=== PATIENT | male | born 1950 | race Caucasian/White ===

== ENCOUNTER 2021-12-06 08:47 | Inpatient (IN) | payer MEDICARE, OTHER ==
[~2021-12-06] VITALS: Ht 182.9 cm; Wt 72.6 kg
--- NOTE | 2021-12-06 09:00 | NUR ---
[id number] HOME C/O ABDOMINAL PAIN,CONSTIPATION, UNABLE TO URINATE X 2 DAYS. PT IS HARD OF HEARING.
--- NOTE | 2021-12-06 09:14 | NUR ---
STARTED FAYE CATH, PALE YELLOW FLUID OBSERVERD IN TUBING AND RESERVOIR.
[2021-12-06] MEDS ORDERED: MINERAL OIL 133 ML (PYXIS) 1 EA ENEMA RC ONE (09:30)
[2021-12-06] MEDS ORDERED: IV NS 0.9% 1,000 ML BAG IV ONE (09:30)
--- NOTE | 2021-12-06 09:30 | NUR ---
FC RESERVOIR DRAINED, 1500 ML URINE MEASURED. COLOR HAS TURNED PINK.
[2021-12-06 09:35] LABS: BASOPHILS % (AUTO) 0.4 % (0.0-2.0); HEMATOCRIT 36 % (39-51); HEMOGLOBIN 11.9 g/dL (13.5-17.5); LYMPHOCYTES % (AUTO) 7.8 % (20.0-44.0); MEAN CORPUSCULAR HGB CONC 33 g/dl (31.0-36.0); MEAN CORPUSCULAR VOLUME 94 fL (80-96); MONOCYTES # (AUTO) 1.3 K/uL (0.1-1.30); MONOCYTES % (AUTO) 9.7 % (2.0-12.0); NEUTROPHILS # (AUTO) 10.7 K/uL (1.8-8.9); NEUTROPHILS % (AUTO) 82.1 % (43.0-81.0); PLATELET COUNT (AUTO) 160 K/uL (150-450); RED BLOOD CELL COUNT(AUTO) 3.84 MIL/uL (4.5-6.0); WHITE BLOOD COUNT (AUTO) 13.1 K/uL (4.3-11.0)
[2021-12-06] MEDS ORDERED: NA PHOS,M-B/NA PHOS,DI-BA 1 EA ENEMA RC ONE (09:40)
[2021-12-06 09:52] LABS: ALANINE AMINOTRANSFERASE 41 U/L (12-78); ALBUMIN 3.8 g/dL (3.4-5.0); ALKALINE PHOSPHATASE 54 U/L (46-116); ASPARTATE AMINOTRANSFERASE 39 U/L (15-37); BILIRUBIN,DIRECT 0.3 mg/dL (0.0-0.2); BILIRUBIN,TOTAL 2.2 mg/dL (0.2-1.0); CALCIUM, SERUM 9.5 mg/dL (8.5-10.1); CARBON DIOXIDE 24 mmol/L (21-32); CHLORIDE 109 mmol/L (98-107); CREATININE 3.6 mg/dL (0.6-1.3); GLUCOSE 164 mg/dL (74-106); LIPASE 30 U/L (73-393); POTASSIUM 4.3 mmol/L (3.5-5.1); SODIUM SERUM 146 mmol/L (136-145); TOTAL PROTEIN, SERUM 7.5 g/dL (6.4-8.2); UREA NITROGEN, BLOOD 63 mg/dL (7-18)
--- NOTE | 2021-12-06 09:52 | NUR ---
URINE SAMPLE COLLECTED AND SENT TO LAB
--- NOTE | 2021-12-06 10:54 | NUR ---
MOVE SHEET SUBMITTED.
[2021-12-06] MEDS ORDERED: HYDR12.55 PO (11:02)
[2021-12-06] MEDS ORDERED: AMLO2.5T4 PO (11:02)
[2021-12-06] MEDS ORDERED: LISI20TA30 PO (11:02)
[2021-12-06] MEDS ORDERED: EZET10TA32 PO (11:02)
[2021-12-06] MEDS ORDERED: ASPI-1420 PO (11:02)
[2021-12-06] MEDS ORDERED: ATOR20TA PO (11:02)
[2021-12-06] MEDS ORDERED: ACETAMINOPHEN 325 MG TABLET PO PRN (11:30)
[2021-12-06] MEDS ORDERED: ONDANSETRON HCL/PF 4 MG/2 ML VIAL IVP PRN (11:30)
[2021-12-06] MEDS ORDERED: MAG HYDROX/AL HYDROX/SIMETH 30 ML UDC PO PRN (11:30)
[2021-12-06] MEDS ORDERED: TAMSULOSIN 0.4 MG CAP.SR.24H PO ONE (11:30)
[2021-12-06 11:37] LABS: BILIRUBIN,URINE NEGATIVE (NEGATIVE); COLOR,URINE RED (YELLOW); LEUKOCYTE ESTERASE ,URINE NEGATIVE (NEGATIVE); NITRITE, URINE NEGATIVE (NEGATIVE); PROTEIN,URINE 100 mg/dl (NEGATIVE); UGLUCOSE NEGATIVE (NEGATIVE); UROBILINOGEN,URINE 0.2 EU/dL (0.2)
[2021-12-06] MEDS ORDERED: CLONIDINE HCL 0.1 MG TABLET PO PRN (12:00)
[2021-12-06 12:03] LABS: BACTERIA,URINE Rare /HPF (None Seen); RBC,URINE TOO NUMEROUS TO COUN /HPF (0-2); SQUAMOUS EPITHELIAL CELL,UR Few /HPF (None Seen); WBC,URINE 0-2 /HPF (0-3)
--- NOTE | 2021-12-06 12:56 | NUR ---
RAPID COVID SWAB DONE AND SENT TO LAB
--- NOTE | 2021-12-06 13:37 | NUR ---
2.2L OF RED TINGED URINE DRAINED
--- NOTE | 2021-12-06 14:33 | NUR ---
room 309-1
--- NOTE | 2021-12-06 14:53 | NUR ---
BED 116-2
--- NOTE | 2021-12-06 15:15 | NUR ---
REPORT GIVEN TO LAM LUCAS OF [facility] UN[facility]
--- NOTE | 2021-12-06 15:30 | NUR ---
RN OPENING NOTES RECIEVED PATIENT FROM EMERGENCY DEPARTMENT. PATIENT ALERT AND ORIENTED TIMES 4. NO COMPLAINTS OF PAIN AT THIS TIME. IV ACCESS ON LEFT ANTECUBITAL 18 GAUGE, STARTED ON IV NORMAL SALINE AT 75 MLS/HR. AFYE CATHETER ATTACHED DRAINING OUTPUT. SKIN INTACT. RIGHT ELBOW GROW NOTED, DOCUMENTED IN PHYSICAL CHART. SAFETY MEASURES IMPLEMENTED, BED IN LOWEST LOCKED POSITION, SIDE RAILS UP TIMES TWO, CALL LIGHT WITHIN REACH. WILL CONTINUE PLAN OF CARE AND ANTICIPATE NEEDS.
[2021-12-06] MEDS: IV NS 0.9% 1,000 ML IV PRN (15:36)
[2021-12-06 16:00] VITALS: BP 153/78
[2021-12-06] MEDS: CEFTRIAXONE 1 G in IV D5W 50 ML IV SCH (16:56)
[2021-12-06] MEDS ORDERED: Z GUARD REMEDY 4 OZ OINT TP PRN (17:00)
--- NOTE | 2021-12-06 18:46 | NUR ---
RN CLOSING NOTES PATIENT ALERT AND ORIENTED TIMES 4. NO COMPLAINTS OF PAIN AT THIS TIME. IV ACCESS ON LEFT ANTECUBITAL 18 GAUGE, RUNNING NORMAL SALINE AT 75 MLS/HR. FAYE CATHETER ATTACHED DRAINING RED OUTPUT. SKIN INTACT. RIGHT ELBOW GROW NOTED, DOCUMENTED IN PHYSICAL CHART. SAFETY MEASURES IMPLEMENTED, BED IN LOWEST LOCKED POSITION, SIDE RAILS UP TIMES TWO, CALL LIGHT WITHIN REACH. WILL ENDORSE TO NIGHTSHIFT NURSE MICHAEL FOR CONTINUATION OF CARE.
[2021-12-06 20:00] VITALS: BP 150/81
[2021-12-06] MEDS ORDERED: MAGNESIUM HYDROXIDE 30 ML UDC PO PRN (22:00)
--- NOTE | 2021-12-06 23:48 | NUR ---
MS RN OPENING NOTE PT RECEIVED IN BED, AWAKE, A&O X4, CALM, COOPERATIVE. ON RA WITH O2SAT OF 97%; NO S/S OF RESP DISTRESS, NO SOB OR COUGH, NON-LABORED AND EQUAL BREATHING. VSS, WILL CONTINUE TO MONITOR NEEDED. IV ACCESS ON LAC 18G, INTACT AND PATENT, FLUSHES EASILY WITH NO RESISTANCE; NS INFUSING AT 75 ML/HR. BED IN LOWEST POSITION, CALL LIGHT WITHIN REACH, SIDE RAILS UP X2. WILL CONTINUE TO MONITOR THROUGHOUT THE NIGHT.
[2021-12-07 04:00] VITALS: BP 172/87
[2021-12-07] MEDS: IV NS 0.9% 1,000 ML IV PRN ×2 (04:31→20:21)
--- NOTE | 2021-12-07 07:00 | NUR ---
MS RN CLOSING NOTE PT REMAINS IN BED, AWAKE, A&O X4, CALM, COOPERATIVE. ON RA WITH O2SAT RANGING FROM 97%-99%; NO S/S OF RESP DISTRESS, NO SOB OR COUGH, NON-LABORED AND EQUAL BREATHING. VSS DURING THE NIGHT WITH NO SIGNIFICANT CHANGES. LAC 18G INTACT AND PATENT, FLUSHES EASILY WITH NO RESISTANCE, NS INFUSING AT 75 ML/HR. BED IN LOWEST POSITION, CALL LIGHT WITHIN REACH, SIDE RAILS UP X2. WILL ENDORSE TO DAYSHIFT NURSE TO CONTINUE CARE. Addendum: 12/07/21 at 0739 by PRINCESS GAVIN LUCAS FAYE INTACT AND PATENT, NO SIGNS OF LEAKING. URINE NOTED TO BE IMPROVING IN COLOR AND IS NOW PINKISH YELLOW COMPARED TO THE LIGHT REDDISH COLOR FROM BEGINNING OF SHIFT.
--- NOTE | 2021-12-07 07:10 | NUR ---
ms rn opening note patient is alert and oriented x4. patient is able to make needs known. patient is hard of hearing. patient is on room saturating at 97%. patient is med surg status. patient has Leggett catheter. red/yellowish/orange color draining to gravity. patient has left ac 18 gauge. iv intact and patent. patient has normal saline running at 75ml/hr. all safety measures in place. call light within reach.bed locked doc lowest position. call light within Reach.bed alarm on.
[2021-12-07 07:30] LABS: CALCIUM, SERUM 9.3 mg/dL (8.5-10.1); CARBON DIOXIDE 24 mmol/L (21-32); CHLORIDE 110 mmol/L (98-107); CREATININE 1.9 mg/dL (0.6-1.3); GLUCOSE 122 mg/dL (74-106); PHOSPHORUS 4.6 mg/dL (2.5-4.9); POTASSIUM 3.9 mmol/L (3.5-5.1); SODIUM SERUM 146 mmol/L (136-145); UREA NITROGEN, BLOOD 43 mg/dL (7-18)
[2021-12-07 07:35] LABS: BASOPHILS % (AUTO) 0.2 % (0.0-2.0); EOSINOPHILS % (AUTO) 0.3 % (0.0-6.0); HEMATOCRIT 39 % (39-51); HEMOGLOBIN 12.7 g/dL (13.5-17.5); LYMPHOCYTES % (AUTO) 15.5 % (20.0-44.0); MEAN CORPUSCULAR HGB CONC 33 g/dl (31.0-36.0); MEAN CORPUSCULAR VOLUME 94 fL (80-96); MONOCYTES # (AUTO) 1.3 K/uL (0.1-1.30); MONOCYTES % (AUTO) 10.1 % (2.0-12.0); NEUTROPHILS # (AUTO) 9.3 K/uL (1.8-8.9); NEUTROPHILS % (AUTO) 73.9 % (43.0-81.0); PLATELET COUNT (AUTO) 160 K/uL (150-450); RED BLOOD CELL COUNT(AUTO) 4.09 MIL/uL (4.5-6.0); WHITE BLOOD COUNT (AUTO) 12.6 K/uL (4.3-11.0)
[2021-12-07 08:00] VITALS: BP 159/77
[2021-12-07] MEDS: ASPIRIN EC 81 MG TABLET.DR PO SCH (08:09)
[2021-12-07] MEDS: ATORVASTATIN 10 MG TABLET PO SCH (08:09)
[2021-12-07] MEDS: EZETIMIBE 10 MG TABLET PO SCH (08:10)
[2021-12-07] MEDS: AMLODIPINE BESYLATE 5 MG TABLET PO SCH (08:10)
--- NOTE | 2021-12-07 14:00 | NUR ---
notified dr. bradley that patient is complaining of abdominal pain and feels mass is protuding and leg cramp. md ordered additional tests.
--- NOTE | 2021-12-07 15:00 | NUR ---
patient sister at bedside. updated about patient conditions. and relayed information to dr. bradley
[2021-12-07] MEDS: CEFTRIAXONE 1 G in IV D5W 50 ML IV SCH (15:19)
[2021-12-07 16:00] VITALS: BP 144/71
--- NOTE | 2021-12-07 19:20 | NUR ---
MS OPENING NOTE RECEIVED PT IN BED AOX4, ABLE TO MAKE NEEDS KNOWN. PT IS HARD OF HEARING. BREATHING ON ROOM AIR WITH 02 SAT OF 97%. PT HAS FAYE CATHETER IN PLACE DRAINING ORANGE COLOR URINE VIA GRAVITY. IV ACCESS ON LAC #18 RUNNING NS AT 75MLS/HR. ALL SAFETY MEASURE IN PLACE, BED LOCKED AND IN LOWEST POSITION, CALL LIGHT WITHIN REACH. WILL CONTINUE TO MONITOR THROUGHOUT SHIFT.
[2021-12-07 20:00] VITALS: BP 149/82
--- NOTE | 2021-12-07 20:41 | NUR ---
MS closing nOTE received patient in bed. alert and oriented x4. all needs met. patient is hard of hearing. patient is on room air tolerating 02 at 97%. no pain or discomofrt noted at this time. patient has dumont cathehter in place. orange color draining to gravity.iv access on left hand running fluids. iv patent and intact. all safety measures in place. call light within reach. bed locked at lowest position.side rails up x2. bedside table next to patient
[2021-12-08 04:00] VITALS: BP 138/82
[2021-12-08 07:17] LABS: BASOPHILS % (AUTO) 0.4 % (0.0-2.0); EOSINOPHILS % (AUTO) 2.3 % (0.0-6.0); HEMATOCRIT 37 % (39-51); HEMOGLOBIN 12.4 g/dL (13.5-17.5); LYMPHOCYTES # (AUTO) 2.2 K/uL (0.8-4.8); LYMPHOCYTES % (AUTO) 19.8 % (20.0-44.0); MEAN CORPUSCULAR HGB CONC 33 g/dl (31.0-36.0); MEAN CORPUSCULAR VOLUME 95 fL (80-96); MONOCYTES # (AUTO) 1.1 K/uL (0.1-1.30); MONOCYTES % (AUTO) 9.6 % (2.0-12.0); NEUTROPHILS # (AUTO) 7.5 K/uL (1.8-8.9); NEUTROPHILS % (AUTO) 67.9 % (43.0-81.0); PLATELET COUNT (AUTO) 153 K/uL (150-450); RED BLOOD CELL COUNT(AUTO) 3.96 MIL/uL (4.5-6.0)
--- NOTE | 2021-12-08 07:30 | NUR ---
ms rn opening note patient is alert and oriented x4. patient is able to make needs known. patient is hard of hearing. patient is on room saturating at 98%. patient is med surg status. patient has Leggett catheter. red/yellowish/orange color draining to gravity. patient has left ac 18 gauge. iv intact and patent. patient has normal saline running at 75ml/hr. all safety measures in place. call light within reach.bed locked doc lowest position. call light within Reach.bed alarm on.
[2021-12-08 07:52] LABS: CALCIUM, SERUM 8.8 mg/dL (8.5-10.1); CARBON DIOXIDE 26 mmol/L (21-32); CHLORIDE 109 mmol/L (98-107); CREATININE 1.4 mg/dL (0.6-1.3); GLUCOSE 126 mg/dL (74-106); POTASSIUM 3.9 mmol/L (3.5-5.1); SODIUM SERUM 143 mmol/L (136-145); UREA NITROGEN, BLOOD 33 mg/dL (7-18)
--- NOTE | 2021-12-08 07:53 | NUR ---
RN/ CLOSING NOTE ALL CARE ENDORSED TO DAY SHIFT RN. PATIENT IS STABLE AND SHOWS NO SIGNS OF DISTRESS. ALL QUESTIONS ANSWERED.
[2021-12-08 08:00] VITALS: BP 161/98
[2021-12-08] MEDS: ASPIRIN EC 81 MG TABLET.DR PO SCH (08:11)
[2021-12-08] MEDS: ATORVASTATIN 10 MG TABLET PO SCH (08:12)
[2021-12-08] MEDS: EZETIMIBE 10 MG TABLET PO SCH (08:22)
[2021-12-08] MEDS: AMLODIPINE BESYLATE 5 MG TABLET PO SCH (08:22)
[2021-12-08] MEDS ORDERED: TAMS-12 PO (08:55)
--- NOTE | 2021-12-08 09:40 | NUR ---
discontinued dumont catheters per md order. monitor urine output for 6 hours. if no urine output reinsert Dumont catheter
[2021-12-08] MEDS: IV NS 0.9% 1,000 ML IV PRN (15:15)
[2021-12-08] MEDS: CEFTRIAXONE 1 G in IV D5W 50 ML IV SCH (15:17)
[2021-12-08 16:00] VITALS: BP 149/97
--- NOTE | 2021-12-08 16:06 | NUR ---
bladder scanner completed. more than 300 urine ouput. notified mirna lane. said to reinsert dumont cathether. pending discharge but need to make arrangements with home health and leather case finisher
--- NOTE | 2021-12-08 16:20 | NUR ---
reinserted dumont cathether. yellow/red color draining to gravity.
--- NOTE | 2021-12-08 19:10 | NUR ---
RN NOTE PATIENT IN BED, AO X 4, BREATHING EVEN AND UNLABORED, SATURATION AT 97% ON ROOM AIR, HR IS 65. IV LINE AT LAC 18G PATENT AND FLUSHING WELL, NS INFUSING AT 75 ML/HR. FAYE CATHETER DRAINING TO A CLEAR, REDDISH/YELLOWISH OUTPUT. PATIENT INDEPENDENT WITH ADL'S. SAFETY MEASURES IMPLEMENTED, BED IS LOCKED AND AT LOWEST POSITION, HOB ELEVATED, SIDE RAILS UP X 2, CALL LIGHT WITHIN REACH OF PATIENT. WILL CONTINUE TO MONITOR AND REASSESS.
[2021-12-08 20:00] VITALS: BP 125/77
--- NOTE | 2021-12-08 20:21 | NUR ---
ms myrick opening note patient is alert and oriented x4.patient is hard of hearing. patient is able to make needs known. no signs of pain or discomfort. patient is on room air saturating at 97%. patient has dumont cathether red color/orange color draining to gravity. patient has iv site on the right arm. iv intact and patent. patient has normal saline running at 75 ml/hr. all needs met. all safety measures in place. call light within reach. bed locked at lowest position. side rails up x2. Addendum: 12/08/21 at 2023 by CJ ADAM RN ms myrick closing note
[2021-12-09 05:00] VITALS: BP 160/79
[2021-12-09 06:00] VITALS: BP 158/90
--- NOTE | 2021-12-09 07:10 | NUR ---
rn opening note patient is alert and oriented x4.patient is hard of hearing. patient is able to make needs known. no signs of pain or discomfort. patient is on room air saturating at 97%. patient has dumont cathether red color/orange color draining to gravity. patient has iv site on the right arm. iv intact and patent. patient has normal saline running at 75 ml/hr. all needs met. all safety measures in place. call light within reach. bed locked at lowest position. side rails up x2
[2021-12-09] MEDS: ASPIRIN EC 81 MG TABLET.DR PO SCH (08:34)
[2021-12-09] MEDS: EZETIMIBE 10 MG TABLET PO SCH (08:34)
[2021-12-09] MEDS: ATORVASTATIN 10 MG TABLET PO SCH (08:34)
[2021-12-09 08:35] VITALS: BP 152/88
[2021-12-09] MEDS: AMLODIPINE BESYLATE 5 MG TABLET PO SCH (08:35)
--- NOTE | 2021-12-09 10:40 | NUR ---
RN NOTE PT WAS DISCHARGED FOR HOME, PICKED UP BY SISTER ACACIA. LEFT FOR HOME WITH FAYE INTACT AND PATENT DRAINING YELLOW URINE VIA GRAVITY. ALL VS STABLE. PATIENT WAS GIVEN DISCHARGE INSTRUCTIONS, VERBALLY AND WRITTEN FORM. PATIENT BELONGINGS ACCOUNTED FOR.
== END 2021-12-09 11:59 | disposition home health service (06) | DRG 725 ==
LOC: ER 09:55 → MEDSG1 15:20
PROVIDERS: ADMIT Internal Medicine; ATTEND Internal Medicine
DX: N40.1 Benign prostatic hyperplasia with lower urinary tract symptoms (principal); N17.0 Acute kidney failure with tubular necrosis; N13.8 Other obstructive and reflux uropathy; E87.1 Hypo-osmolality and hyponatremia; N13.30 Unspecified hydronephrosis; N13.9 Obstructive and reflux uropathy, unspecified; R33.9 Retention of urine, unspecified; N32.0 Bladder-neck obstruction; E86.0 Dehydration; E86.1 Hypovolemia; I25.10 Atherosclerotic heart disease of native coronary artery without angina pectoris; Z95.5 Presence of coronary angioplasty implant and graft; K59.00 Constipation, unspecified; I12.9 Hypertensive chronic kidney disease with stage 1 through stage 4 chronic kidney disease, or unspecified chronic kidney disease; N18.9 Chronic kidney disease, unspecified; Z20.822 Contact with and (suspected) exposure to COVID-19; K57.30 Diverticulosis of large intestine without perforation or abscess without bleeding
CPT/HCPCS: 36415; 76770-TC; 80048-TC; 80076-TC; 81001; 83690-TC; 83735-TC; 84100-TC; 85025-TC; 85730-TC; 87081-TC; C9803; G0378; J0696; J3490; J7030; J7060

== ENCOUNTER 2021-12-20 23:08 | Emergency (ER) | payer MEDICARE, OTHER ==
[~2021-12-20] VITALS: Ht 180.3 cm; Wt 83.9 kg
[~2021-12-20 23:08] MED LIST: AMLO2.5T4 PO; ASPI-1420 PO; ATOR20TA PO; EZET10TA32 PO; HYDR12.55 PO; LISI20TA30 PO; TAMS-12 PO
--- NOTE | 2021-12-21 | NUR ---
BIBRA 860 FROM HOME STEPPED ON F/C & C/O BLOOD IN F/C. PT AWAKE AND ALERT X4 BREATHING UNLABORED. BROWN URINE NOTED IN URINE BAG AND DRIED BLOOD AT GENITAL. NO ACTIVE BLEED. DENIES ANY PAIN AT THIS TIME .
--- NOTE | 2021-12-21 00:12 | NUR ---
BLADDER MANUALLY IRRIGATED AND NOTED TWO SMALL CLOTS. OTHERWISE DRAINING CLEAR WITHOUT OBSTRUCTION ON GROSS HEMATURIA. MADE AWARE.
--- NOTE | 2021-12-21 01:00 | NUR ---
Note hanna in EDM - 12/21/21 at 0107 by VICTORIA BIBRA 860 FROM HOME STEPPED ON F/C & C/O BLOOD IN F/C. PT AWAKE AND ALERT X4 BREATHING UNLABORED. BROWN URINE NOTED IN URINE BAG AND DRIED BLOOD AT GENITAL. NO ACTIVE BLEED. DENIES ANY PAIN AT THIS TIME .
--- NOTE | 2021-12-21 01:02 | NUR ---
URINE COLLECTED AND SENT TO LAB
--- NOTE | 2021-12-21 01:03 | NUR ---
URINE COLLECTED AND SENT TO LAB
[2021-12-21 01:25] LABS: BILIRUBIN,URINE NEGATIVE (NEGATIVE); COLOR,URINE YELLOW (YELLOW); LEUKOCYTE ESTERASE ,URINE SMALL (NEGATIVE); NITRITE, URINE POSITIVE (NEGATIVE); PH,URINE 5.5 (5.0-8.0); PROTEIN,URINE TRACE mg/dl (NEGATIVE); UGLUCOSE NEGATIVE (NEGATIVE); UROBILINOGEN,URINE 0.2 EU/dL (0.2)
--- NOTE | 2021-12-21 01:59 | NUR ---
Patient discharged to home in stable condition via [facility]. Written and verbal after care instructions given. Patient verbalizes understanding of instruction. F/C leg bag attached. PT ambulatory with a steady gait
[2021-12-21 02:23] VITALS: BP 122/54
[2021-12-21 07:19] LABS: BACTERIA,URINE Few /HPF (None Seen); SQUAMOUS EPITHELIAL CELL,UR Moderate /HPF (None Seen)
== END 2021-12-21 02:00 | disposition home or self-care (01) ==
LOC: ER 23:14
DX: S39.94XA Unspecified injury of external genitals, initial encounter (principal); R31.9 Hematuria, unspecified; I10 Essential (primary) hypertension; I25.2 Old myocardial infarction; E78.00 Pure hypercholesterolemia, unspecified; Z88.0 Allergy status to penicillin; Z60.2 Problems related to living alone; Z79.899 Other long term (current) drug therapy; X58.XXXA Exposure to other specified factors, initial encounter; Y93.89 Activity, other specified; Y92.89 Other specified places as the place of occurrence of the external cause; Y99.8 Other external cause status
CPT/HCPCS: 99284; 51700; 87077; 87086; 87186 ×2; 81001; A4217

== ENCOUNTER 2022-01-27 03:30 | Emergency (ER) | payer MEDICARE, OTHER ==
[~2022-01-27] VITALS: Ht 177.8 cm; Wt 72.6 kg
[2022-01-27 03:37] VITALS: BP 146/76
--- NOTE | 2022-01-27 03:40 | NUR ---
[id number]. PUBIC PAIN, NO URINATION X 2300. FAYE CATH REMOVED BY UROLOGIST. PT IS A/O, RR EVEN, NO SOB NOTED. TO ER BED 11.
--- NOTE | 2022-01-27 03:45 | NUR ---
INSERTED Fr16 F/C, 700 CC URINE OUTPUT CLEAR YELLOW URINE. CHANGE TO LEG BAG
[2022-01-27] MEDS ORDERED: LIDOCAINE 2% JEL UROJET 10 ML MM ONE (03:46)
--- NOTE | 2022-01-27 04:40 | NUR ---
PAGED GILBERTO FOR PT. WAITING FOR NEXT AVAILABLE IN AREA.
--- NOTE | 2022-01-27 05:30 | NUR ---
[employer] still searching for passenger coach driver
--- NOTE | 2022-01-27 06:44 | NUR ---
Patient discharged to home in stable condition. Written and verbal after care instructions given. Patient verbalizes understanding of instruction.
== END 2022-01-27 06:45 | disposition home or self-care (01) ==
LOC: ER 03:40
DX: R33.9 Retention of urine, unspecified (principal); I10 Essential (primary) hypertension; I25.2 Old myocardial infarction; E78.00 Pure hypercholesterolemia, unspecified; Z60.2 Problems related to living alone; Z79.899 Other long term (current) drug therapy
CPT/HCPCS: 99284; 51702; J3490

== ENCOUNTER 2022-03-14 01:07 | Emergency (ER) | payer MEDICARE, OTHER ==
[~2022-03-14] VITALS: Ht 175.3 cm; Wt 75.3 kg
--- NOTE | 2022-03-14 01:17 | NUR ---
[id number] FROM HOME FOR URINARY RETENTION SINCE THE AFTERNOON FAYE IN PLACE. PT A/OX4 TOLERATING R/A WELL WITH NO RESP DISTRESS. SAFETY MEASURES IN PLACE.
--- NOTE | 2022-03-14 01:34 | NUR ---
BLADDER SCAN - 353ML; DR. SAMANTHA LAZCANO AWARE
--- NOTE | 2022-03-14 01:37 | NUR ---
WAREHOUSE FOREMAN AT PT'S BEDSIDE
[2022-03-14 01:56] LABS: CREATININE 1.1 mg/dL (0.6-1.3); POTASSIUM 4.1 mmol/L (3.5-5.1)
[2022-03-14] MEDS ORDERED: LIDOCAINE 2% JEL UROJET 10 ML MM ONE (02:01)
--- NOTE | 2022-03-14 02:16 | NUR ---
INSERTED F/C 16FR WITH 325 ML URINE OUTPUT; COLLECTED AND SENT TO LAB
[2022-03-14 02:46] LABS: BILIRUBIN,URINE NEGATIVE (NEGATIVE); COLOR,URINE YELLOW (YELLOW); LEUKOCYTE ESTERASE ,URINE 1+ (NEGATIVE); NITRITE, URINE NEGATIVE (NEGATIVE); PROTEIN,URINE TRACE mg/dl (NEGATIVE); UGLUCOSE NEGATIVE (NEGATIVE); UROBILINOGEN,URINE 0.2 EU/dL (0.2)
[2022-03-14 02:49] LABS: BACTERIA,URINE Few /HPF (None Seen); RBC,URINE TOO NUMEROUS TO COUN /HPF (0-2); SQUAMOUS EPITHELIAL CELL,UR Rare /HPF (None Seen)
--- NOTE | 2022-03-14 03:26 | NUR ---
Patient discharged to home in stable condition. Written and verbal after care instructions given. Patient verbalizes understanding of instruction. PT ambulatory with a steady gait
[2022-03-14 03:28] VITALS: BP 125/7
== END 2022-03-14 03:28 | disposition home or self-care (01) ==
LOC: ER 01:17
DX: R33.9 Retention of urine, unspecified (principal); I10 Essential (primary) hypertension; E78.00 Pure hypercholesterolemia, unspecified; Z60.2 Problems related to living alone; Z79.899 Other long term (current) drug therapy; Z88.0 Allergy status to penicillin; Z79.82 Long term (current) use of aspirin
CPT/HCPCS: 99284; 51702; 80048; 87086; 81001; 36415; J3490

== ENCOUNTER 2022-05-09 16:07 | Emergency (ER) | payer MEDICARE, OTHER ==
[~2022-05-09] VITALS: Ht 177.8 cm; Wt 77.1 kg
--- NOTE | 2022-05-09 17:15 | NUR ---
NEW FAYE INSERTED WITH LEG BAG, PER PATIENT REQUEST
--- NOTE | 2022-05-09 17:16 | NUR ---
URINE SAMPLE COLLECTED
[2022-05-09 18:13] LABS: BILIRUBIN,URINE NEGATIVE (NEGATIVE); COLOR,URINE YELLOW (YELLOW); LEUKOCYTE ESTERASE ,URINE 2+ (NEGATIVE); NITRITE, URINE POSITIVE (NEGATIVE); PROTEIN,URINE 1+ mg/dl (NEGATIVE); UGLUCOSE NEGATIVE (NEGATIVE); UROBILINOGEN,URINE 0.2 EU/dL (0.2)
[2022-05-09] MEDS ORDERED: CIPR500T5 PO (19:06)
[2022-05-09 19:07] LABS: BACTERIA,URINE 3+ /HPF (None Seen); RBC,URINE 51-80 /HPF (0-2); SQUAMOUS EPITHELIAL CELL,UR 0-2 /HPF (None Seen); WBC,URINE 51-80 /HPF (0-3)
[2022-05-09 19:16] VITALS: BP 133/74
--- NOTE | 2022-05-09 19:17 | NUR ---
Patient discharged to home in stable condition. Written and verbal after care instructions given. Patient verbalizes understanding of instruction.
== END 2022-05-09 19:17 | disposition home or self-care (01) ==
LOC: ER 17:07
DX: T83.091A Other mechanical complication of indwelling urethral catheter, initial encounter (principal); N39.0 Urinary tract infection, site not specified; I10 Essential (primary) hypertension; I25.2 Old myocardial infarction; E78.00 Pure hypercholesterolemia, unspecified; Z60.2 Problems related to living alone; Z79.899 Other long term (current) drug therapy
CPT/HCPCS: 81001; 87086-TC

== ENCOUNTER 2022-06-20 18:40 | Emergency (ER) | payer MEDICARE, OTHER ==
[~2022-06-20] VITALS: Ht 177.8 cm; Wt 78.0 kg
[~2022-06-20 18:40] MED LIST changes: +CIPR500T5 PO
--- NOTE | 2022-06-20 19:00 | NUR ---
Patient AOx4, [place], able to express his concerns. States he is ok other than pain when he urinates. All safety precaution taken, will continue to monitor.
--- NOTE | 2022-06-20 19:21 | NUR ---
New folley inserted, urine collected and sent to lab.
[2022-06-20] MEDS ORDERED: CIPROFLOXACIN HCL 500 MG TABLET PO ONE (19:30)
--- NOTE | 2022-06-20 19:30 | NUR ---
Pt is noted alert, responsive as report is received from the off going nurse , that , pt came in C/O Bloody Dranage from Leggett Cath and a New 16Fr Leggett Cath is been insterted . Pt care continue as he will be monitor closely with clear urine noted drainging with no s/s off dsitress or C/O pain.
[2022-06-20] MEDS ORDERED: CIPR-262 PO (19:32)
--- NOTE | 2022-06-20 19:33 | NUR ---
HAND OFF DEVON LUCAS
--- NOTE | 2022-06-20 19:34 | NUR ---
Handoff report given to Dorothy LUCAS
[2022-06-20] MEDS ORDERED: CIPROFLOXACIN HCL 500 MG TABLET ONE (19:42)
--- NOTE | 2022-06-20 19:50 | NUR ---
Cipro 500mg PO given as ordered. Pt care continue.
[2022-06-20 20:08] LABS: BILIRUBIN,URINE NEGATIVE (NEGATIVE); COLOR,URINE YELLOW (YELLOW); LEUKOCYTE ESTERASE ,URINE TRACE (NEGATIVE); NITRITE, URINE NEGATIVE (NEGATIVE); PROTEIN,URINE NEGATIVE (NEGATIVE); UGLUCOSE NEGATIVE (NEGATIVE); UROBILINOGEN,URINE 0.2 EU/dL (0.2)
--- NOTE | 2022-06-20 20:11 | NUR ---
Pt care continue as he is been discharge to home with Leg Bag and all discharge instructions given and no s/s off distress as urine is noted yellow and clear.
[2022-06-20 20:14] VITALS: BP 140/88
[2022-06-20 21:39] LABS: BACTERIA,URINE RARE /HPF (None Seen); RBC,URINE 51-80 /HPF (0-2); SQUAMOUS EPITHELIAL CELL,UR 0-2 /HPF (None Seen)
== END 2022-06-20 20:15 | disposition home or self-care (01) ==
LOC: ER 18:42
DX: T83.83XA Hemorrhage due to genitourinary prosthetic devices, implants and grafts, initial encounter (principal); I10 Essential (primary) hypertension; E78.00 Pure hypercholesterolemia, unspecified; Z79.899 Other long term (current) drug therapy; Z79.82 Long term (current) use of aspirin; Z60.2 Problems related to living alone; Z88.0 Allergy status to penicillin
CPT/HCPCS: 81001; 87086-TC

== ENCOUNTER 2022-07-21 16:06 | Emergency (ER) | payer MEDICARE, OTHER ==
[~2022-07-21] VITALS: Ht 177.8 cm; Wt 79.4 kg
[~2022-07-21 16:06] MED LIST changes: +CIPR-262 PO
--- NOTE | 2022-07-21 16:26 | NUR ---
Consuelo AOx4, able to express his concerns. Patient states he emptied urinary bag earlier with visible blood. Discussed plan of care, consuelo verbalized agreement. All safety precautions taken.
[2022-07-21 16:46] LABS: BASOPHILS % (AUTO) 0.4 % (0.0-2.0); EOSINOPHILS % (AUTO) 1.3 % (0.0-6.0); HEMATOCRIT 38 % (39-51); HEMOGLOBIN 12.8 g/dL (13.5-17.5); LYMPHOCYTES # (AUTO) 2.1 K/uL (0.8-4.8); LYMPHOCYTES % (AUTO) 20.8 % (20.0-44.0); MEAN CORPUSCULAR HGB CONC 33 g/dl (31.0-36.0); MEAN CORPUSCULAR VOLUME 94 fL (80-96); MONOCYTES # (AUTO) 0.9 K/uL (0.1-1.30); MONOCYTES % (AUTO) 8.6 % (2.0-12.0); NEUTROPHILS % (AUTO) 68.9 % (43.0-81.0); PLATELET COUNT (AUTO) 171 K/uL (150-450); RED BLOOD CELL COUNT(AUTO) 4.09 MIL/uL (4.5-6.0); WHITE BLOOD COUNT (AUTO) 10.1 K/uL (4.3-11.0)
[2022-07-21 16:57] LABS: CALCIUM, SERUM 9.5 mg/dL (8.5-10.1); CARBON DIOXIDE 22 mmol/L (21-32); CHLORIDE 104 mmol/L (98-107); CREATININE 1.1 mg/dL (0.6-1.3); GLUCOSE 149 mg/dL (74-106); SODIUM SERUM 136 mmol/L (136-145); UREA NITROGEN, BLOOD 40 mg/dL (7-18)
[2022-07-21 17:02] LABS: ALANINE AMINOTRANSFERASE 31 U/L (12-78); ALBUMIN 3.9 g/dL (3.4-5.0); ALKALINE PHOSPHATASE 66 U/L (46-116); ASPARTATE AMINOTRANSFERASE 23 U/L (15-37); BILIRUBIN,DIRECT 0.2 mg/dL (0.0-0.2); BILIRUBIN,TOTAL 1.3 mg/dL (0.2-1.0); TOTAL PROTEIN, SERUM 7.3 g/dL (6.4-8.2)
--- NOTE | 2022-07-21 17:09 | NUR ---
New Leggett inserted, patient states he feel alot better.
--- NOTE | 2022-07-21 17:11 | NUR ---
Urine collected, sent to lab
[2022-07-21 17:41] LABS: BILIRUBIN,URINE NEGATIVE (NEGATIVE); COLOR,URINE YELLOW (YELLOW); LEUKOCYTE ESTERASE ,URINE TRACE (NEGATIVE); NITRITE, URINE NEGATIVE (NEGATIVE); PROTEIN,URINE NEGATIVE (NEGATIVE); UGLUCOSE NEGATIVE (NEGATIVE); UROBILINOGEN,URINE 0.2 EU/dL (0.2)
[2022-07-21 17:54] LABS: BACTERIA,URINE None seen /HPF (None Seen); SQUAMOUS EPITHELIAL CELL,UR None Seen /HPF (None Seen); WBC,URINE 0-2 /HPF (0-3)
[2022-07-21 18:25] VITALS: BP 148/82
== END 2022-07-21 18:25 | disposition home or self-care (01) ==
LOC: ER 17:34
DX: T83.9XXA Unspecified complication of genitourinary prosthetic device, implant and graft, initial encounter (principal); R31.9 Hematuria, unspecified; I10 Essential (primary) hypertension; E78.00 Pure hypercholesterolemia, unspecified; Z60.2 Problems related to living alone; Z79.899 Other long term (current) drug therapy; Z79.82 Long term (current) use of aspirin; Z88.0 Allergy status to penicillin
CPT/HCPCS: 36415; 80048-TC; 80076-TC; 81001; 85025-TC

== ENCOUNTER 2022-08-23 20:19 | Emergency (ER) | payer MEDICARE, OTHER ==
[~2022-08-23] VITALS: Ht 180.3 cm; Wt 81.6 kg
--- NOTE | 2022-08-23 21:00 | NUR ---
FRED 839 FROM HOME FOR URINARY RETENTION SINCE 6PM WHEN HE CHANGED HIS CATH. PATIENT IS PLACED COMFORTABLY IN BED. VITALS CHECKED.
--- NOTE | 2022-08-23 21:10 | NUR ---
[facility] CHANGED. URINE SPECIMEN SENT TO LAB
[2022-08-23 22:02] LABS: BILIRUBIN,URINE NEGATIVE (NEGATIVE); COLOR,URINE YELLOW (YELLOW); LEUKOCYTE ESTERASE ,URINE 1+ (NEGATIVE); NITRITE, URINE NEGATIVE (NEGATIVE); PROTEIN,URINE TRACE mg/dl (NEGATIVE); UGLUCOSE NEGATIVE (NEGATIVE); UROBILINOGEN,URINE 0.2 EU/dL (0.2)
[2022-08-23 22:09] LABS: RBC,URINE 51-80 /HPF (0-2)
[2022-08-23 22:10] LABS: BACTERIA,URINE 1+ /HPF (None Seen)
[2022-08-23] MEDS ORDERED: CIPR-262 PO (22:23)
--- NOTE | 2022-08-23 22:41 | NUR ---
Patient discharged to home in stable condition. Written and verbal after care instructions given. Patient verbalizes understanding of instruction.
[2022-08-23 23:31] VITALS: BP 160/82
== END 2022-08-23 23:32 | disposition home or self-care (01) ==
LOC: ER 20:27
DX: N39.0 Urinary tract infection, site not specified (principal); R33.9 Retention of urine, unspecified; I10 Essential (primary) hypertension; I25.2 Old myocardial infarction; E78.00 Pure hypercholesterolemia, unspecified; Z88.0 Allergy status to penicillin; Z60.2 Problems related to living alone; Z79.899 Other long term (current) drug therapy
CPT/HCPCS: 81001; 87086-TC

== ENCOUNTER 2022-10-21 17:07 | Emergency (ER) | payer MEDICARE, OTHER ==
[~2022-10-21] VITALS: Ht 177.8 cm; Wt 79.4 kg
[2022-10-21 19:00] VITALS: BP 137/96; TEMP 98.8; O2SAT 97
== END 2022-10-21 19:01 | disposition home or self-care (01) ==
LOC: ER 17:12
DX: R33.9 Retention of urine, unspecified (principal); T83.098A Other mechanical complication of other urinary catheter, initial encounter; I10 Essential (primary) hypertension; E78.00 Pure hypercholesterolemia, unspecified; N40.1 Benign prostatic hyperplasia with lower urinary tract symptoms; Z79.899 Other long term (current) drug therapy; Z79.82 Long term (current) use of aspirin; Z60.2 Problems related to living alone; Z88.0 Allergy status to penicillin

== ENCOUNTER 2022-12-13 10:10 | Emergency (ER) | payer MEDICARE, OTHER ==
[~2022-12-13] VITALS: Ht 172.7 cm; Wt 77.1 kg
[2022-12-13 11:07] LABS: APPEARANCE,URINE CLEAR (CLEAR); BILIRUBIN,URINE NEGATIVE (NEGATIVE); BLOOD, URINE 1+ Ery/uL (NEGATIVE); COLOR,URINE YELLOW (YELLOW); KETONES,URINE NEGATIVE (NEGATIVE); LEUKOCYTE ESTERASE ,URINE 1+ (NEGATIVE); NITRITE, URINE NEGATIVE (NEGATIVE); PH,URINE 5.5 (5.0-8.0); PROTEIN,URINE NEGATIVE (NEGATIVE); UGLUCOSE NEGATIVE (NEGATIVE); UROBILINOGEN,URINE 0.2 EU/dL (0.2)
[2022-12-13 11:51] LABS: ADD URINE CULTURE YES; BACTERIA,URINE Rare /HPF (None Seen); SQUAMOUS EPITHELIAL CELL,UR Rare /HPF (None Seen)
[2022-12-13] MEDS ORDERED: NITR100C PO (12:00)
[2022-12-13 12:18] VITALS: BP 151/78; TEMP 98; O2SAT 97
== END 2022-12-13 12:19 | disposition home or self-care (01) ==
LOC: ER 10:15
DX: T83.9XXA Unspecified complication of genitourinary prosthetic device, implant and graft, initial encounter (principal); N39.0 Urinary tract infection, site not specified; I10 Essential (primary) hypertension; E78.00 Pure hypercholesterolemia, unspecified; Z79.899 Other long term (current) drug therapy; Z79.82 Long term (current) use of aspirin; Z60.2 Problems related to living alone; Z88.0 Allergy status to penicillin
CPT/HCPCS: 81001; 87086-TC

== ENCOUNTER 2023-02-08 19:34 | Emergency (ER) | payer MEDICARE, OTHER ==
[~2023-02-08] VITALS: Ht 167.6 cm; Wt 77.1 kg
[~2023-02-08 19:34] MED LIST changes: +NITR100C PO
[2023-02-08 21:09] LABS: APPEARANCE,URINE CLEAR (CLEAR); BILIRUBIN,URINE NEGATIVE (NEGATIVE); BLOOD, URINE 2+ Ery/uL (NEGATIVE); COLOR,URINE YELLOW (YELLOW); KETONES,URINE NEGATIVE (NEGATIVE); LEUKOCYTE ESTERASE ,URINE 1+ (NEGATIVE); NITRITE, URINE POSITIVE (NEGATIVE); PH,URINE 5.5 (5.0-8.0); PROTEIN,URINE NEGATIVE (NEGATIVE); UGLUCOSE NEGATIVE (NEGATIVE); UROBILINOGEN,URINE 0.2 EU/dL (0.2)
[2023-02-08] MEDS ORDERED: CIPR-262 PO (21:43)
[2023-02-08 21:45] LABS: ADD URINE CULTURE YES; BACTERIA,URINE 1+ /HPF (None Seen); RBC,URINE 21-50 /HPF (0-2); SQUAMOUS EPITHELIAL CELL,UR 0-2 /HPF (None Seen)
[2023-02-08] MEDS ORDERED: CIPROFLOXACIN HCL 500 MG TABLET ONE (21:57)
[2023-02-08] MEDS ORDERED: CIPROFLOXACIN HCL 500 MG TABLET PO ONE (22:00)
[2023-02-08 22:19] VITALS: BP 139/89; TEMP 98.4; O2SAT 97
== END 2023-02-08 22:20 | disposition home or self-care (01) ==
LOC: ER 19:46
DX: T83.091A Other mechanical complication of indwelling urethral catheter, initial encounter (principal); N39.0 Urinary tract infection, site not specified; I10 Essential (primary) hypertension; I25.2 Old myocardial infarction; E78.00 Pure hypercholesterolemia, unspecified; Z88.0 Allergy status to penicillin; Z60.2 Problems related to living alone; Z79.899 Other long term (current) drug therapy
CPT/HCPCS: 81001; 87086-TC

== ENCOUNTER 2023-02-11 02:21 | Emergency (ER) | payer MEDICARE, OTHER ==
[~2023-02-11] VITALS: Ht 180.3 cm; Wt 79.4 kg
[2023-02-11 02:43] VITALS: BP 160/82; TEMP 98.2; O2SAT 98
== END 2023-02-11 02:44 | disposition home or self-care (01) ==
LOC: ER 02:23
DX: Z71.1 Person with feared health complaint in whom no diagnosis is made (principal); I10 Essential (primary) hypertension; I25.2 Old myocardial infarction; E78.00 Pure hypercholesterolemia, unspecified; Z88.0 Allergy status to penicillin; Z60.2 Problems related to living alone; Z79.899 Other long term (current) drug therapy

== ENCOUNTER 2023-05-12 20:53 | Emergency (ER) | payer MEDICARE, OTHER ==
[~2023-05-12] VITALS: Ht 180.3 cm; Wt 88.5 kg
[2023-05-12] MEDS ORDERED: NITR100C6 PO (21:29)
[2023-05-12 21:43] LABS: APPEARANCE,URINE SLIGHTLY CLOUDY (CLEAR); BILIRUBIN,URINE NEGATIVE (NEGATIVE); BLOOD, URINE 3+ Ery/uL (NEGATIVE); COLOR,URINE YELLOW (YELLOW); KETONES,URINE NEGATIVE (NEGATIVE); LEUKOCYTE ESTERASE ,URINE 3+ (NEGATIVE); NITRITE, URINE NEGATIVE (NEGATIVE); PROTEIN,URINE NEGATIVE (NEGATIVE); UGLUCOSE NEGATIVE (NEGATIVE); UROBILINOGEN,URINE 0.2 EU/dL (0.2)
[2023-05-12 21:53] VITALS: BP 134/88; TEMP 98; O2SAT 99
[2023-05-12 22:34] LABS: ADD URINE CULTURE YES; BACTERIA,URINE 2+ /HPF (None Seen); RBC,URINE 51-80 /HPF (0-2); SQUAMOUS EPITHELIAL CELL,UR 0-2 /HPF (None Seen); WBC,URINE 51-80 /HPF (0-3)
== END 2023-05-12 22:24 | disposition home or self-care (01) ==
LOC: ER 20:54
DX: R31.9 Hematuria, unspecified (principal); I10 Essential (primary) hypertension; I25.2 Old myocardial infarction; E78.00 Pure hypercholesterolemia, unspecified; Z88.0 Allergy status to penicillin; Z60.2 Problems related to living alone; Z79.899 Other long term (current) drug therapy
CPT/HCPCS: 81001; 87086-TC

== ENCOUNTER 2023-07-18 23:21 | Emergency (ER) | payer MEDICARE, OTHER ==
[~2023-07-18] VITALS: Ht 182.9 cm; Wt 77.1 kg
[~2023-07-18 23:21] MED LIST changes: +NITR100C6 PO
[2023-07-18 23:30] VITALS: BP 162/86; TEMP 98.1; O2SAT 98
[2023-07-19 00:46] LABS: APPEARANCE,URINE SLIGHTLY CLOUDY (CLEAR); BILIRUBIN,URINE NEGATIVE (NEGATIVE); BLOOD, URINE 3+ Ery/uL (NEGATIVE); COLOR,URINE YELLOW (YELLOW); KETONES,URINE NEGATIVE (NEGATIVE); LEUKOCYTE ESTERASE ,URINE 3+ (NEGATIVE); NITRITE, URINE NEGATIVE (NEGATIVE); PROTEIN,URINE 2+ mg/dl (NEGATIVE); UGLUCOSE NEGATIVE (NEGATIVE); UROBILINOGEN,URINE 0.2 EU/dL (0.2)
[2023-07-19 01:09] LABS: ADD URINE CULTURE YES; BACTERIA,URINE 3+ /HPF (None Seen); MUCUS,URINE Moderate /LPF (None Seen); RBC,URINE 21-50 /HPF (0-2); SQUAMOUS EPITHELIAL CELL,UR None Seen /HPF (None Seen); WBC,URINE 21-50 /HPF (0-3)
[2023-07-19] MEDS ORDERED: CIPR500T5 PO (01:28)
== END 2023-07-19 02:12 | disposition home or self-care (01) ==
LOC: ER 23:35
DX: N39.0 Urinary tract infection, site not specified (principal); T83.091A Other mechanical complication of indwelling urethral catheter, initial encounter; I10 Essential (primary) hypertension; I25.2 Old myocardial infarction; E78.00 Pure hypercholesterolemia, unspecified; Z88.0 Allergy status to penicillin; Z30.2 Encounter for sterilization; Z79.899 Other long term (current) drug therapy
CPT/HCPCS: 81001

== ENCOUNTER 2024-02-04 19:38 | Emergency (ER) | payer MEDICARE, OTHER ==
[~2024-02-04] VITALS: Ht 180.3 cm; Wt 81.6 kg
[2024-02-04 19:47] VITALS: BP 139/77; TEMP 97.9
[2024-02-04 20:50] LABS: APPEARANCE,URINE SLIGHTLY CLOUDY (CLEAR); BILIRUBIN,URINE NEGATIVE (NEGATIVE); BLOOD, URINE 3+ Ery/uL (NEGATIVE); COLOR,URINE YELLOW (YELLOW); KETONES,URINE NEGATIVE (NEGATIVE); LEUKOCYTE ESTERASE ,URINE 2+ (NEGATIVE); NITRITE, URINE POSITIVE (NEGATIVE); PH,URINE 5.5 (5.0-8.0); PROTEIN,URINE NEGATIVE (NEGATIVE); UGLUCOSE NEGATIVE (NEGATIVE); UROBILINOGEN,URINE 0.2 EU/dL (0.2)
[2024-02-04 20:53] LABS: ADD URINE CULTURE YES; WBC,URINE 51-80 /HPF (0-3)
[2024-02-04 20:54] LABS: BACTERIA,URINE 2+ /HPF (None Seen); SQUAMOUS EPITHELIAL CELL,UR 0-2 /HPF (None Seen)
[2024-02-04] MEDS ORDERED: LEVO500T90 PO (21:04)
[2024-02-04 21:31] VITALS: O2SAT 98
== END 2024-02-04 21:32 | disposition home or self-care (01) ==
LOC: ER 19:43
DX: T83.018A Breakdown (mechanical) of other urinary catheter, initial encounter (principal); N39.0 Urinary tract infection, site not specified; I10 Essential (primary) hypertension; E78.00 Pure hypercholesterolemia, unspecified; Z79.82 Long term (current) use of aspirin; Z88.0 Allergy status to penicillin
CPT/HCPCS: 81001

== ENCOUNTER 2024-04-04 03:57 | Emergency (ER) | payer MEDICARE, OTHER ==
[~2024-04-04] VITALS: Ht 180.3 cm; Wt 81.6 kg
[~2024-04-04 03:57] MED LIST changes: +LEVO500T90 PO
[2024-04-04 05:21] LABS: APPEARANCE,URINE SLIGHTLY CLOUDY (CLEAR); BILIRUBIN,URINE NEGATIVE (NEGATIVE); BLOOD, URINE 2+ Ery/uL (NEGATIVE); COLOR,URINE YELLOW (YELLOW); KETONES,URINE NEGATIVE (NEGATIVE); LEUKOCYTE ESTERASE ,URINE 1+ (NEGATIVE); NITRITE, URINE POSITIVE (NEGATIVE); PROTEIN,URINE 1+ mg/dl (NEGATIVE); UGLUCOSE NEGATIVE (NEGATIVE); UROBILINOGEN,URINE 0.2 EU/dL (0.2)
[2024-04-04] MEDS ORDERED: CIPR500T5 PO (05:29)
[2024-04-04] MEDS ORDERED: CIPROFLOXACIN HCL 500 MG TABLET ONE (05:31)
[2024-04-04] MEDS: CIPROFLOXACIN HCL 500 MG TABLET PO ONE (05:31)
[2024-04-04 05:43] VITALS: BP 146/84; TEMP 98.3; O2SAT 96
[2024-04-04 06:06] LABS: ADD URINE CULTURE YES; BACTERIA,URINE Few /HPF (None Seen)
[2024-04-04 06:08] LABS: SQUAMOUS EPITHELIAL CELL,UR Rare /HPF (None Seen)
[2024-04-04 06:24] LABS: WBC,URINE 21-50 /HPF (0-3)
== END 2024-04-04 05:45 | disposition home or self-care (01) ==
LOC: ER 04:01
DX: T83.018A Breakdown (mechanical) of other urinary catheter, initial encounter (principal); E78.00 Pure hypercholesterolemia, unspecified; I10 Essential (primary) hypertension; N39.0 Urinary tract infection, site not specified; N40.1 Benign prostatic hyperplasia with lower urinary tract symptoms; R33.8 Other retention of urine; Z79.82 Long term (current) use of aspirin; Z79.899 Other long term (current) drug therapy; Z60.2 Problems related to living alone; Z88.0 Allergy status to penicillin; Y84.8 Other medical procedures as the cause of abnormal reaction of the patient, or of later complication, without mention of misadventure at the time of the procedure; Y92.89 Other specified places as the place of occurrence of the external cause
CPT/HCPCS: 81001

== ENCOUNTER 2024-05-21 17:36 | Emergency (ER) | payer MEDICARE, OTHER ==
[~2024-05-21] VITALS: Ht 180.3 cm; Wt 81.6 kg
[2024-05-21] MEDS: LIDOCAINE 2% JEL UROJET 10 ML MM ONE (18:00)
[2024-05-21] MEDS ORDERED: LIDOCAINE 2% JEL UROJET 10 ML MM ONE (18:03)
[2024-05-21 19:07] VITALS: BP 151/69; TEMP 98.1; O2SAT 99
[2024-05-21 19:29] LABS: APPEARANCE,URINE CLEAR (CLEAR); BILIRUBIN,URINE NEGATIVE (NEGATIVE); BLOOD, URINE 3+ Ery/uL (NEGATIVE); COLOR,URINE YELLOW (YELLOW); KETONES,URINE NEGATIVE (NEGATIVE); LEUKOCYTE ESTERASE ,URINE TRACE (NEGATIVE); NITRITE, URINE NEGATIVE (NEGATIVE); PH,URINE 5.5 (5.0-8.0); PROTEIN,URINE NEGATIVE (NEGATIVE); UGLUCOSE NEGATIVE (NEGATIVE); UROBILINOGEN,URINE 0.2 EU/dL (0.2)
[2024-05-21 19:49] LABS: ADD URINE CULTURE NO; BACTERIA,URINE None seen /HPF (None Seen); RBC,URINE 51-80 /HPF (0-2); SQUAMOUS EPITHELIAL CELL,UR 0-2 /HPF (None Seen)
== END 2024-05-21 19:07 | disposition home or self-care (01) ==
LOC: ER 17:39
DX: T83.031A Leakage of indwelling urethral catheter, initial encounter (principal); E78.00 Pure hypercholesterolemia, unspecified; I10 Essential (primary) hypertension; N40.1 Benign prostatic hyperplasia with lower urinary tract symptoms; R33.8 Other retention of urine; Z79.82 Long term (current) use of aspirin; Z79.899 Other long term (current) drug therapy; Z88.0 Allergy status to penicillin; Y92.89 Other specified places as the place of occurrence of the external cause
CPT/HCPCS: 99284; 51702; 87086; 81001; J3490

== ENCOUNTER 2024-07-25 14:48 | Emergency (ER) | payer MEDICARE, OTHER ==
[~2024-07-25] VITALS: Ht 177.8 cm; Wt 81.6 kg
[2024-07-25 15:42] LABS: APPEARANCE,URINE CLEAR (CLEAR); BILIRUBIN,URINE Negative (NEGATIVE); BLOOD, URINE Moderate Ery/uL (NEGATIVE); COLOR,URINE YELLOW (YELLOW); KETONES,URINE Negative (NEGATIVE); LEUKOCYTE ESTERASE ,URINE Small (NEGATIVE); NITRITE, URINE NEGATIVE (NEGATIVE); PH,URINE 5.5 (5.0-8.0); PROTEIN,URINE 100 mg/dl (NEGATIVE); UGLUCOSE Negative (NEGATIVE); UROBILINOGEN,URINE 0.2 EU/dL (0.2)
[2024-07-25 15:52] LABS: ADD URINE CULTURE YES; BACTERIA,URINE Rare /HPF (None Seen); SQUAMOUS EPITHELIAL CELL,UR 0-2 /HPF (None Seen)
[2024-07-25] MEDS ORDERED: DOXY-326 PO (16:42)
[2024-07-25 17:03] VITALS: BP 132/80; TEMP 98.7; O2SAT 98
== END 2024-07-25 17:04 | disposition home or self-care (01) ==
LOC: ER 14:58
DX: T83.098A Other mechanical complication of other urinary catheter, initial encounter (principal); N39.0 Urinary tract infection, site not specified; R33.8 Other retention of urine; N40.1 Benign prostatic hyperplasia with lower urinary tract symptoms; E78.00 Pure hypercholesterolemia, unspecified; I10 Essential (primary) hypertension; Z79.82 Long term (current) use of aspirin; Z79.899 Other long term (current) drug therapy; Z88.0 Allergy status to penicillin; Y84.6 Urinary catheterization as the cause of abnormal reaction of the patient, or of later complication, without mention of misadventure at the time of the procedure; Y92.89 Other specified places as the place of occurrence of the external cause; Z60.2 Problems related to living alone
CPT/HCPCS: 81001

== ENCOUNTER 2024-10-25 09:53 | Emergency (ER) | payer MEDICARE, OTHER ==
[~2024-10-25] VITALS: Ht 170.2 cm; Wt 77.1 kg
[~2024-10-25 09:53] MED LIST changes: +DOXY-326 PO
[2024-10-25] MEDS ORDERED: LIDOCAINE 2% JEL UROJET 10 ML MM ONE (10:47)
[2024-10-25] MEDS: LIDOCAINE 2% JEL UROJET 10 ML MM ONE (10:58)
[2024-10-25 11:11] VITALS: BP 140/80; TEMP 98.1; O2SAT 99
== END 2024-10-25 11:20 | disposition home or self-care (01) ==
LOC: ER 09:58
DX: T83.038A Leakage of other urinary catheter, initial encounter (principal); I10 Essential (primary) hypertension; E78.00 Pure hypercholesterolemia, unspecified; N40.0 Benign prostatic hyperplasia without lower urinary tract symptoms; Z79.82 Long term (current) use of aspirin; Z79.899 Other long term (current) drug therapy; Z88.0 Allergy status to penicillin; Z60.2 Problems related to living alone
CPT/HCPCS: 99284; 51702; J3490